=== PATIENT | male | born 1950 | race Caucasian/White ===

== ENCOUNTER 2019-11-18 07:23 | Day surgery (SDC) | payer OTHER ==
[~2019-11-18] VITALS: Ht 177.8 cm; Wt 109.8 kg
[~2019-11-18 07:23] MED LIST: BENICAR HCT 401 EAC1 PO; CLONIDINE HCL0.2 MG PO; DEPO-TESTO200 MG/1 M IM; ICAPS TABLET1 EACH PO; METFORMIN HCL1000 MG PO; METOPROLOL SUC100 MG PO; METOPROLOL TART50 MG PO; OMEPRAZOLE20 MG PO; PERCOCET 7.5-31 EACH PO; SIMVASTATIN20 MG PO; TAMSULOSIN HCL0.4 MG PO; TYLENOL WITH C1 EACH PO; ZOLPIDEM TARTRA10 MG PO
--- NOTE | 2019-11-18 09:28 | NUR ---
11/18/19 0928 Christi Lincoln 0921- PT ARRIVES TO PACU TALKING WITH STAFF. RESP EVEN AND UNLABORED. OXYGEN SAT LOW TO MID 90'S ON 2L VIA NC. PT ENCOURAGED TO COUGH AND DEEP BREATHE. PT IS ABLE TO DO THIS AND OXYGEN SAT INCREASED TO THE HIGH 90'S. 09- PT PASSING FLATUS.
--- NOTE | 2019-11-21 09:09 | OR ---
[facility] [address] [place], [place] [address] Signed DATE OF OPERATION: 11/18/2019 SURGEON: Pilar Whipple MD PREOPERATIVE DIAGNOSIS: Episodic persistent diarrhea (chronic). POSTOPERATIVE DIAGNOSIS: Polyps x2, normal-appearing colonic mucosa, otherwise including terminal ileum. PROCEDURE: 1. Total colonoscopy to cecum with random biopsies including rectum, cecum and terminal ileum. 2. Cold morcellation polypectomy x2 (cecum and hepatic flexure). ANESTHESIA: Intravenous sedation, fentanyl 100 mcg and Versed 9 mg. INDICATION: This 69-year-old white man is a patient of Dr. Xiomara Howard and well known to me from the past. He has had episodic diarrhea which in recent times is better than in the past. He does take metformin, the possibility of this contributes to it is uncertain. He has been empirically treated with Flagyl in the past and has undergone colonoscopy in the past showing no sign of colitis. He is admitted to undergo colonoscopy at this time for surveillance and for assessment of diarrhea. He understands the risks of bleeding, infection, and perforation and wished to proceed. FINDINGS: The prep was excellent. Complete colonoscopy was undertaken to the cecum. Intubation of the ileum was slightly challenging, but was accomplished allowing for biopsies there. It was not grossly abnormal. There were two small polyps, one in the cecum, one at the hepatic flexure, both excised with cold morcellation technique. There was no evidence of obvious colitis or proctitis, although biopsies were taken of the cecum and rectum to assess for occult colitis. DESCRIPTION OF PROCEDURE: The patient was brought to the endoscopy suite and placed in lateral decubitus position, given intravenous sedation to the point of slurred speech and nystagmus. Digital rectal examination was normal. Electronically Signed By: PILAR WHIPPLE MD 11/21/19 0909 PATIENT NAME: Nya LYONS OPERATIVE REPORT DATE OF : 54 REPORT #: [id number] PHYSICIAN: PILAR WHIPPLE MD PCP: XIOMARA HOWARD MD REPORT IS CONFIDENTIAL AND NOT TO BE RELEASED WITHOUT AUTHORIZATION [facility] [address] [place], [place] [address] Signed An Olympus video colonoscope was passed in the rectum and manipulated throughout the colon ultimately intubating the cecum itself. The ileocecal valve was identified and with various maneuvers, it was partially intubated, could never be fully intubated in the typical way, but visualization though transient did appear normal. Biopsies were taken of the terminal ileum distal 2-3 cm. The scope was withdrawn to the cecum. Biopsies were taken of the cecum as well. Withdrawal of scope showed a small adenomatous polyp at the junction between the ascending and cecal area and this polyp was excised with cold morcellation technique. Further withdrawal to the hepatic flexure showed another similar such polyp, it too was excised. Withdrawal of scope for the remaining colon showed no sign of obvious abnormality. Retroflexed view was normal as well. Biopsy was taken of the rectum to assess for occult colitis. The scope was removed. The patient was taken to the recovery room in good condition. CONCLUDING DIAGNOSES: 1. Small polyps x2. 2. Normal-appearing ileum. 3. Normal-appearing colon. PLAN: We will check pathology report. Recommend a repeat colonoscopy in 5 years due to polyps, sooner if needed. He is not currently taking any antidiarrheal medication, but if his diarrhea should worsen, consideration will be made for loperamide or other agent. MD BALTAZAR White/MODL /[id number] cc: Xiomara Howard MD Copies: XIOMARA HOWARD MD ~ Electronically Signed By: PILAR WHIPPLE MD 11/21/19908 PATIENT NAME: Nya LYONS OPERATIVE REPORT DATE OF : 54 REPORT #: [id number] PHYSICIAN: PILAR WHIPPLE MD PCP: XIOMARA HOWARD MD REPORT IS CONFIDENTIAL AND NOT TO BE RELEASED WITHOUT AUTHORIZATION
--- NOTE | 2019-11-22 14:00 | PATH ---
[facility] [address] [place], [place] [address] Signed SPECIMEN(S): A TERMINAL ILEUM SPECIMEN(S): B CECUM SPECIMEN(S): C CECAL POLYP SPECIMEN(S): D HEPATIC FLEXURE POLYP SPECIMEN(S): E RECTUM SPECIMEN SOURCE: A. TERMINAL ILEUM B. CECUM C. CECAL POLYP D. HEPATIC FLEXURE POLYP E. RECTUM CLINICAL HISTORY: Hx diarrhea. MICROSCOPIC DESCRIPTION: Histologic sections of all submitted blocks are examined by light microscopy. These findings, together with the gross examination, support the pathologic diagnosis. FINAL PATHOLOGIC DIAGNOSIS: A. Terminal ileum, biopsy: - Ileal mucosa with no histopathologic abnormality. - Negative for active inflammation or granulomata. - Negative for dysplasia or malignancy. B. Colon, cecum, biopsy: - Colonic mucosa with no histopathologic abnormality. - Negative for active, chronic, or microscopic colitis. - Negative for dysplasia or malignancy. C. Colon, cecum, polyp, polypectomy: - Tubular adenoma. - Negative for high-grade dysplasia or malignancy. D. Colon, hepatic flexure, polyp, polypectomy: - Fragments of tubular adenoma. - Negative for high-grade dysplasia or malignancy. E. Rectum, biopsy: - Rectal mucosa with no histopathologic abnormality. - Negative for active or chronic proctitis. - Negative for dysplasia or malignancy. NAL:[facility]:C2NR PATIENT NAME: Nya LYONS PATHOLOGY DATE OF : 54 REPORT #: [id number] PHYSICIAN: EFRMIN PATHOLOGY PCP: XIOMARA MERIDA MD REPORT IS CONFIDENTIAL AND NOT TO BE RELEASED WITHOUT AUTHORIZATION [facility] [address] [place], [place] [address] Signed GROSS DESCRIPTION: Five specimens are received in five containers, labeled "RL." A. The specimen, labeled "RL, terminal ileum biopsy," is received in formalin and consists of three martínez soft tissue fragment(s) that measure 0.2 cm in greatest dimension. The specimen is entirely submitted in cassette (A1). B. The specimen, labeled "RL, cecum biopsy," is received in formalin and consists of two martínez soft tissue fragment(s) that measure 0.1 cm in greatest dimension. The specimen is entirely submitted in cassette (B1). C. The specimen, labeled "RL, cecum polyp," is received in formalin and consists of three martínez soft tissue fragment(s) that measure 0.2 cm in greatest dimension. The specimen is entirely submitted in cassette (C1). D. The specimen, labeled "RL, hepatic flexure polyp," is received in formalin and consists of three martínez soft tissue fragment(s) that measure 0.1 cm in greatest dimension. The specimen is entirely submitted in cassette (D1). E. The specimen, labeled "RL, rectum biopsy," is received in formalin and consists of one martínez soft tissue fragment(s) that measure 0.2 cm in greatest dimension. The specimen is entirely submitted in cassette (E1). JS (under the direct supervision of a pathologist) The Gross Description was prepared using a voice recognition system. The report was reviewed for accuracy; however, sound-alike word errors, addition and/or deletions may occur. If there is any question about this report, please contact Client Services. PERFORMING LABORATORY: The technical component was performed by [employer] [address] [place] [address] (Account Manager Education: Kathryn Nails MD; CLIA# [id number]). Professional interpretation was performed by [facility], [address] [address], [place] [address] (CLIA# [id number]). Diagnostician: Beatrice Chowdary MD Pathologist Electronically Signed 11/22/2019 Copies: PATIENT NAME: Nya LYONS PATHOLOGY DATE OF : 54 REPORT #: [id number] PHYSICIAN: FERMIN PATHOLOGY PCP: XIOMARA MERIDA MD REPORT IS CONFIDENTIAL AND NOT TO BE RELEASED WITHOUT AUTHORIZATION [facility] [address] [place] [address] Signed ~ PATIENT NAME: Nya LYONS PATHOLOGY DATE OF : 54 REPORT #: [id number] PHYSICIAN: INCYTE PATHOLOGY PCP: XIOMARA MERIDA MD REPORT IS CONFIDENTIAL AND NOT TO BE RELEASED WITHOUT AUTHORIZATION
== END 2019-11-18 10:00 | disposition home or self-care (01) ==
LOC: DS 07:23
PROVIDERS: ATTEND Surgery
PROC: 0DBL8ZZ Excision of Transverse Colon, Via Natural or Artificial Opening Endoscopic (ICD-10-PCS; 2019-11-18)
PROC: 0DBP8ZX Excision of Rectum, Via Natural or Artificial Opening Endoscopic, Diagnostic (ICD-10-PCS; 2019-11-18)
PROC: 0DBB8ZX Excision of Ileum, Via Natural or Artificial Opening Endoscopic, Diagnostic (ICD-10-PCS; 2019-11-18)
PROC: 0DBH8ZZ Excision of Cecum, Via Natural or Artificial Opening Endoscopic (ICD-10-PCS; principal; 2019-11-18 08:30)
DX: D12.0 Benign neoplasm of cecum (principal); D12.3 Benign neoplasm of transverse colon; I10 Essential (primary) hypertension; E11.9 Type 2 diabetes mellitus without complications; E78.5 Hyperlipidemia, unspecified; K21.9 Gastro-esophageal reflux disease without esophagitis; F51.04 Psychophysiologic insomnia; Z79.84 Long term (current) use of oral hypoglycemic drugs; Z79.899 Other long term (current) drug therapy; Z88.1 Allergy status to other antibiotic agents; Z88.2 Allergy status to sulfonamides; Z90.49 Acquired absence of other specified parts of digestive tract; Z87.891 Personal history of nicotine dependence
CPT/HCPCS: 99153; G0500; J0690; J2250; J3010; J7121

== ENCOUNTER 2021-05-06 05:40 | Day surgery (SDC) | payer OTHER ==
[~2021-05-06] VITALS: Ht 177.8 cm; Wt 97.3 kg
[~2021-05-06 05:40] MED LIST changes: +GLUCOTROL XL10 MG PO; +IMODIUM A-D2 M2 PO; +LIPITOR40 MG PO; +LOSARTAN-HCTZ1 EAC1 PO; +OMEPRAZOLE20 M1 PO; +OZEMPIC0.25 MG/0. SUB-Q; +VITAMIN D325 MCG PO
--- NOTE | 2021-05-06 08:30 | NUR ---
PT ALERT, ORIENTED AND SUPPORTED BY HIS SPOUSE POLO. BOTH SEEM INFORMED, ALL QUESTIONS ASKED ANSWERED. GAVE BLESSING, POLO WILL REMAIN THROUGH SURGERY
--- NOTE | 2021-05-06 09:56 | NUR ---
05/06/21 0956 Gi Hernandez 0965 PT ARRIVED IN PACU SLEEPY WITH NO C/O'S. RAMACHANDRAN WITH CBI RUNNING. URINE LIGHT PINK IN COLOR. 0950 OXYGEN REMOVED. SATS 92-95% ON RA. C/O FEELING STUFFY IN NOSE/FOREHEAD AREA.
--- NOTE | 2021-05-06 10:36 | NUR ---
PT TO FLOOR WITH PRICILLA LLOYD. PT AWAKE AND RESPONSIVE TO QUESTIONS. FALLS ASLEEP QUICKLY THOUGH. IN ROOM. URINE PUTTING OUT WATERMELON COLORED URINE, IRRIGATION AT A GOOD DRIP. DENIES PAIN BUT FEELS LIKE HE HAS TO PEE.
--- NOTE | 2021-05-06 12:13 | NUR ---
PT RESTING WITH EYES CLOSED. DENIES PAIN, JUST PRESSURE OF NEEDING TO PEE. SWITCHED PT TO IVF ON PUMP. EMPTIED RAMACHANDRAN, LARGE QTY WATERMELON URINE.
[2021-05-06] MEDS ORDERED: GLIPIZIDE10 MG PO (12:27)
[2021-05-06] MEDS ORDERED: METOPROLOL SUC200 MG PO (12:29)
--- NOTE | 2021-05-06 12:38 | OR ---
[facility] [address] [place], [place] [address] Signed DATE OF OPERATION: 05/06/2021 SURGEON: Melissa Cochran MD PREOPERATIVE DIAGNOSES: 1. Urinary urgency, frequency and weak force of stream. 2. Trilobar benign prostatic hyperplasia with associated lower urinary tract symptoms. 3. Evidence of long-standing bladder outlet obstruction (grade 4 bladder wall trabeculation). POSTOPERATIVE DIAGNOSES: 1. Urinary urgency, frequency and weak force of stream. 2. Trilobar benign prostatic hyperplasia with associated lower urinary tract symptoms. 3. Evidence of long-standing bladder outlet obstruction (grade 4 bladder wall trabeculation). NAMES OF PROCEDURES: 1. Diagnostic cystoscopy. 2. Urethral dilation using Gooding sounds from 14-Congolese to 30-Congolese. 3. Transurethral resection of the prostate. ANESTHESIA: General. ESTIMATED BLOOD LOSS: 20 mL. COMPLICATIONS: None. SPECIMENS: Prostate chips sent to pathology for evaluation. DRAINS: A 22-Congolese three-way Ocampo catheter, connected to continuous bladder irrigation. INDICATIONS FOR PROCEDURE: Olga is a very pleasant 70-year-old gentleman who presented to me with wyeajuis-ea-efsmid lower urinary tract symptoms on Flomax twice daily. He had has failed oral medications, and at that time, the decision was made for him to undergo Electronically Signed By: MELISSA COCHRAN MD 05/06/21 1238 PATIENT NAME: OLGA LYONS OPERATIVE REPORT DATE OF : 54 REPORT #: [id number] PHYSICIAN: MELISSA COCHRAN MD PCP: VERONICA MARTINEZ MD REPORT IS CONFIDENTIAL AND NOT TO BE RELEASED WITHOUT AUTHORIZATION [facility] [address] [place], [place] [address] Signed diagnostic cystoscopy to be evaluated for transurethral resection of the prostate. He did undergo a diagnostic cystoscopy which revealed evidence of long-standing bladder outlet obstruction, along with kwgctutj-mx-hmhzgf trilobar benign prostatic hyperplasia with a medium-sized median lobe projecting into the bladder. After discussion of the risks and benefits of the procedure which include, but are not limited to hemorrhage, sexual dysfunction, and urinary incontinence, the patient elected to undergo transurethral resection of the prostate for definitive management of his bladder outlet obstruction. OPERATIVE FINDINGS: 1. On cystoscopy, there was no evidence of any bladder lesions or stones. Bilateral ureteral orifices are noted in their normal anatomic location and are not near the bladder neck. He has a good deal of calculi dust present in his bladder that is indicative of chronic incomplete bladder emptying. Also, noted is grade 4 bladder wall trabeculation with 2 to 3 large bladder wall diverticula measuring a maximum size of 7 cm. 2. The patient's trilobar prostate was resected using a 24-Congolese bipolar loop. The median lobe was resected first followed by the left and then right lateral lobe of the prostate. Resection was performed down to the level of just proximal to the verumontanum to avoid any damage to the external sphincter. At the end of the resection, there was no evidence of any iatrogenic injury to the bilateral ureteral orifices, which again were in their normal anatomic location. 3. At the end of the procedure, a 22-Congolese three-way Ocampo catheter was inserted into the patient's bladder and the balloon was filled with 30 mL of water. The catheter was then connected to continuous bladder irrigation. DESCRIPTION OF PROCEDURE: After informed consent was obtained, the patient was taken back to the operating room where he was transferred from the [facility] to the operating room table. General anesthesia was then induced and he was placed in the dorsal lithotomy position. His genitalia were then prepped and draped in a standard sterile fashion. A digital rectal examination was performed, which revealed a 50 g prostate with no focal nodules. His urethral meatus was then dilated using Gooding sounds from 14-Congolese to 30-Congolese without difficulty. 60 mL of lubricant was then injected through the penis and into the prostatic urethra using a 60 mL syringe. Using a 30-degree lens on a 26-Congolese introducer, a rigid cystoscope was inserted through his urethra and into his bladder under direct visualization. Panendoscopic views of the bladder and prostatic urethra were then obtained. Please see above findings. The scope was then switched out for the resectoscope with a 24-Congolese loop. The median lobe was then resected using bipolar electrocautery. Again, I had good visualization of the bilateral ureteral orifices during the entire resection and there was no iatrogenic injury noted at the end of the resection. Also using the bipolar loop, I resected the left and then right lateral lobe Electronically Signed By: MELISSA COCHRAN MD 05/06/21 1238 PATIENT NAME: OLGA LYONS OPERATIVE REPORT DATE OF : 54 REPORT #: [id number] PHYSICIAN: MELISSA COCHRAN MD PCP: VERONICA MARTINEZ MD REPORT IS CONFIDENTIAL AND NOT TO BE RELEASED WITHOUT AUTHORIZATION [address] [address] Signed of the prostate down to the level of just proximal to the verumontanum. Adequate hemostasis was achieved and maintained using the bipolar loop. Once a good deal of the prostatic tissue had been resected, the patient's bladder was irrigated thoroughly with the Marti syringe to retrieve all the prostate chips. This was performed a couple of times until all the prostate tissue was extracted to my satisfaction. Then I switched the loop out for a bipolar button and smoothed the surfaces of the prostatic urethra out and then continued with cauterization of any additional small bleeders in the prostatic urethra. Once I was satisfied that hemostasis had been achieved the patient's bladder was then irrigated again with a Marti syringe. The chips were then placed in a specimen cup to be sent to pathology for evaluation. I then removed the resectoscope and passed a Sensor wire through the sheath and into the patient's bladder. The sheath was then removed fully intact. Over the wire, passed a 22-Congolese three-way Ocampo catheter into the patient's bladder and filled the Ocampo balloon with 30 mL of sterile water. The patient's catheter was then mainly irrigated multiple times to assure adequate placement. The catheter was then connected to continuous bladder irrigation. Again, a digital rectal exam was performed, which revealed no abnormalities, only prostate enlargement. The procedure was then terminated. The patient tolerated the procedure well without any complication. He will now be transferred to the postanesthesia care unit in stable condition. DISPOSITION: I discussed the details of today's procedure with the patient's and answered all of her questions. He will stay the night with us tonight on continuous bladder irrigation, which will be weaned off slowly, keeping his urine clear to light pink in color. He will be given pain control and antiemetics as needed and his diabetic diet will be advanced as tolerated. Tomorrow morning once his CBI has been weaned off he will be discharged to home with his Ocampo catheter to gravity drainage. He will be scheduled to return to clinic this April 29, to undergo a voiding trial. Melissa Cochran MD AR/MODL /[id number] Copies: Electronically Signed By: MELISSA COCHRAN MD 05/06/21 1238 PATIENT NAME: OLGA LYONS OPERATIVE REPORT DATE OF : 54 REPORT #: [id number] PHYSICIAN: MELISSA COCHRAN MD PCP: VERONICA MARTINEZ MD REPORT IS CONFIDENTIAL AND NOT TO BE RELEASED WITHOUT AUTHORIZATION [address] [address] Signed ~ Electronically Signed By: MELISSA COCHRAN MD 05/06/21 1238 PATIENT NAME: OLGA LYONS OPERATIVE REPORT DATE OF : 54 REPORT #: [id number] PHYSICIAN: MELISSA COCHRAN MD PCP: VERONICA MARTINEZ MD REPORT IS CONFIDENTIAL AND NOT TO BE RELEASED WITHOUT AUTHORIZATION
--- NOTE | 2021-05-06 13:52 | NUR ---
PT RESTING IN BED. URINE EMPTIED, LIGHT RED. DENIES NEEDING PAIN MEDS ATT. STILL NOT HUNGRY. HELD INSULIN FOR NOW.
--- NOTE | 2021-05-06 14:06 | NUR ---
MED REC COMPLETE
--- NOTE | 2021-05-06 14:16 | NUR ---
CHECKED ON PT-LAYING IN BED WITH TV ON. SAID SHE WAS OK, BUT NEEDED SOME LIGHTS TURNED DOWN. LIGHTS DIMMED, GAVE BLESSING AND LEFT G.POST. WILL FOLLOW NEEDED
--- NOTE | 2021-05-06 17:45 | NUR ---
PT SITTING IN BED EATING DINNER. PT DENIES NEEDING PAIN MEDS. GIVEN INSULIN FOR BS. IN ROOM.
--- NOTE | 2021-05-06 19:20 | NUR ---
BEDSIDE REPORT RECEIVED FROM OFFGOING RNCIARA. PT DENIES NEEDS. CALL LIGHT IN REACH.
--- NOTE | 2021-05-06 23:11 | NUR ---
PT ASSESSMENT COMPLETE. PT NOTED TO HAVE BLOOD ON FRONT OF GOWN, ON SOCKS, ON LEGS, AND BLOOD DROPS IN FLOOR NEXT TO BED. PT STATES THAT HE STOOD UP AT EDGE OF BED AND REALIZED HE WAS HOOKED TO TOO MANY THINGS TO GO ANYWHERE. STATES THAT HE WAS HOT AND NEEDED TO STAND UP TO COOL OFF. EDUCATION PROVIDED REGARDING STRICT BEDREST. PT STATES UNDERSTANDING. BED ALARM PLACED AND PT CLEANSED. NEW GOWN PLACED. PT ALERT AND ORIENTED. CATH CARE PERFORMED. CBI INFUSING. URINE IS LIGHT PINK IN TUBING, NO CLOTS PRESENT IN TUBING. IV FLUSHED, WNL. IFV INFUSING ORDERED. PT REPORTS INCREASED BACK/NECK/PENIS PAIN. PRN ADMINISTERED SEE EMAR. PT DENIES SOB OR NAUSEA AT THIS TIME. PT CALL LIGHT IN REACH. FURTHER NEEDS DENIED.
--- NOTE | 2021-05-07 00:30 | NUR ---
PT RESTING IN BED WATCHING TV. STATES THAT PAIN IS WELL CONTROLLED AFTER PRN. STATES HE WILL HEAD TO BED SHORTLY. URINE IN RAMACHANDRAN TUBE NOTED TO BE CLEAR IN COLOR. CLAMPED AT THIS TIME. PT DENIES FURTHER NEEDS. CALL LIGHT IN REACH. BD ALARM ACTIVE.
--- NOTE | 2021-05-07 01:19 | NUR ---
PT ROUNDING. PT RESTING IN BED ON R SIDE. URINE IN TUBING VERY LIGHT PINK IN COLOR, CBI REMAINS CLAMPED. PT DENIES FURTHER NEEDS. CALL LIGHT IN REACH.
--- NOTE | 2021-05-07 02:08 | NUR ---
PT ASSESSMENT COMPLETE. PT RESTINGIN BED AWAKE. STATES THAT HE IS LIGHT SLEEPER AND HAS TROUBLE SLEEPING IN NEW PLACES. PT DENIES PAIN, NAUSEA, OR SOB. RAMACHANDRAN DRAINING DARK PINK URINE. CBI INCREASED TO SLOW DRIP AT THIS TIME. IVF INFUSING ORDERED. PT DENIES FURTHER NEEDS AT THIS TIME. CALL LIGHT IN REACH.
--- NOTE | 2021-05-07 04:10 | NUR ---
PT ROUNDING. PT RESTING IN BED WATCHING TV. URINE IN RAMACHANDRAN TUBING CLEAR, CBI CLAMPED. PT DENIES NEEDS. CALL LIGHTIN REACH.
--- NOTE | 2021-05-07 06:24 | NUR ---
PT ROUNDING. VS OBTAINED. WNL. RAMACHANDRAN EMPTIED. CLEAR YELLOW URINE PRESENT IN RAMACHANDRAN TUBING. CBI CLMAPED. PT DENIES FRESH ICE WATER, FURTHER NEEDS AT THIS TIME. CALL LIGHT IN REACH. BED ALARM ACTIVE.
--- NOTE | 2021-05-07 07:30 | NUR ---
Report receved at beside by Alcira PLEITEZ. pt is alert oriented and watching tv. per report CBI clamped since 399 caal draining urine slightly pink no clotting noted. Patient deines concerns or pain
--- NOTE | 2021-05-07 08:00 | NUR ---
Am medications provided see emar. patient deines pain or bladder spasms. denies nausea. discussed poc and strict bed rest. patient eating breakfast.
[2021-05-07] MEDS ORDERED: OXYCODONE HCL5 MG PO (08:31)
[2021-05-07] MEDS ORDERED: LEVOFLOXACIN250 MG PO (08:32)
--- NOTE | 2021-05-07 10:55 | NUR ---
1000- notified Dr Becerril of patients status. Ok to discharge per Dr Becerril. Educated patient on diet, activity restrictions, catheter care, follow up appt, and resons to contact health care providers. Patient's was at the bedside. Asked questions appropriately. IV removed. Denies questiosn at time of disharge
--- NOTE | 2021-05-07 12:14 | NUR ---
PT DRESSED, STANDING IN FRONT OF WINDOW VISITING WITH HIS . PT IS READY TO DC, GAVE BLESSING AND SEEMS READY. WILL FOLLOW NEEDED
--- NOTE | 2021-05-08 10:40 | PATH ---
[facility] [address] [place], [place] [address] Signed SPECIMEN(S): A PROSTATE CHIPS SPECIMEN SOURCE: A. PROSTATE CHIPS CLINICAL HISTORY: Trilobar BPH; TURP. FINAL PATHOLOGIC DIAGNOSIS: Prostate chips, transurethral resection: - Fragments of benign prostatic tissue with glandular and stromal hyperplasia, consistent with features seen in benign prostatic hyperplasia. TWK:[facility]:C2NR MICROSCOPIC EXAMINATION: Histologic sections of all submitted blocks are examined by light microscopy. These findings, together with the gross examination, support the pathologic diagnosis. GROSS DESCRIPTION: The specimen, labeled "RL, prostate chips," is received in formalin and consists of irregular shaped, pink-martínez, rubbery tissue fragments that aggregate measure 6.5 x 5.5 x 1.2 cm. Specimen weighs 15 grams. Approximately 90% of the specimen is submitted in nine cassettes (A1-A9). JS (under the direct supervision of a pathologist) The Gross Description was prepared using a voice recognition system. The report was reviewed for accuracy; however, sound-alike word errors, addition and/or deletions may occur. If there is any question about this report, please contact Client Services. PERFORMING LABORATORY: The technical component was performed by [employer], [address] [place] [id number] (Gas Engine Mechanic: Kathryn Nails MD; CLIA# [id number]). The professional interpretation was performed by [employer], [facility], [address] [place] [address]. Diagnostician: Ravinder Gifford MD Pathologist Electronically Signed 05/08/2021 PATIENT NAME: OLGA LYONS PATHOLOGY DATE OF : 54 REPORT #: [id number] PHYSICIAN: FERMIN PATHOLOGY PCP: VERONICA MARTINEZ MD REPORT IS CONFIDENTIAL AND NOT TO BE RELEASED WITHOUT AUTHORIZATION [address] [address] Signed Copies: ~ PATIENT NAME: OLGA LYONS PATHOLOGY DATE OF : 54 REPORT #: [id number] PHYSICIAN: FERMIN PATHOLOGY PCP: VERONICA MARTINEZ MD REPORT IS CONFIDENTIAL AND NOT TO BE RELEASED WITHOUT AUTHORIZATION
== END 2021-05-07 11:20 | disposition home or self-care (01) ==
LOC: DS 05:40 → MS 10:10 → DS 05-07 11:20
PROVIDERS: ATTEND Urology
PROC: 0VT08ZZ Resection of Prostate, Via Natural or Artificial Opening Endoscopic (ICD-10-PCS; principal; 2021-05-06 06:45)
DX: N40.1 Benign prostatic hyperplasia with lower urinary tract symptoms (principal); N13.8 Other obstructive and reflux uropathy; R39.15 Urgency of urination; R39.12 Poor urinary stream; R35.0 Frequency of micturition; N32.89 Other specified disorders of bladder; R39.14 Feeling of incomplete bladder emptying; E11.9 Type 2 diabetes mellitus without complications; Z88.2 Allergy status to sulfonamides
CPT/HCPCS: C1769; J0690; J0696; J1100; J1815; J1885; J2250; J2405; J2704; J2765; J3010; J7030; J7121

== ENCOUNTER 2023-08-28 15:55 | Emergency (ER) | payer OTHER ==
[~2023-08-28] VITALS: Ht 177.8 cm; Wt 115.3 kg
[~2023-08-28 15:55] MED LIST changes: +GLIPIZIDE10 MG PO; +LEVOFLOXACIN250 MG PO; +METOPROLOL SUC200 MG PO; +OXYCODONE HCL5 MG PO
[2023-08-28 16:10] LABS: HEMATOCRIT 44.9 % (35.0-50.0); HEMOGLOBIN 13.7 g/dL (12.0-18.0); MCH 29.1 (27-36); MCHC 30.5 g/dl (30-36); MCV 95.3 fl (81-99); PLATELET COUNT 300 K/uL (140-440); RBC 4.71 M/ul (4.3-5.7); RDW 15.8 (10.5-15.0)
[2023-08-28] MEDS ORDERED: SODIUM CHLORIDE 0.9% 1,000 ML IV ONE (16:15)
[2023-08-28] MEDS ORDERED: NOREPINEPHRINE BITARTRATE 250 ML IV SCH (16:15)
[2023-08-28 16:27] LABS: HCO3, BLOOD GAS 5.9 mmol/L (22-26); O2 SATURATION, BLOOD GAS 80.6 % (95.0-100.0); PO2, BLOOD GAS 75 mmHg (80-100); TOTAL CO2, BLOOD GAS 7.5
[2023-08-28 16:31] LABS: BANDS, MANUAL DIFF 4; BASOPHILS, MANUAL DIFF 1; EOSINOPHILS, MANUAL DIFF 3; LYMPHOCYTES, MANUAL DIFF 24; MONOCYTES, MANUAL DIFF 2; NEUTROPHILS, MANUAL DIFF 66
[2023-08-28 16:57] LABS: BASE EXCESS, BLOOD GAS -31.3 mmol/L (-2-2)
[2023-08-28 17:16] LABS: ALBUMIN 2.3 g/dL (3.4-5.0); ALBUMIN/GLOBULIN RATIO 0.72 (1.1-2.4); BILIRUBIN, TOTAL 0.3 ng/dL (0.2-1.0); CALCIUM 6.8 mg/dL (8.5-10.1); PROTEIN, TOTAL 5.5 g/dL (6.4-8.2)
[2023-08-28 17:17] LABS: ANION GAP 32.2 (7-21)
[2023-08-28 17:18] LABS: POTASSIUM 8.2 mmol/L (3.5-5.1)
--- NOTE | 2023-08-28 18:06 | NUR ---
Called to comfort family of patient in crisis. Had prayer, gave words of comfort and water. Patient passed at 17:13. Gave care and comfort to family as they waited for out of town son to arrive. At family's request and release of body, Chapel was contacted at 18:25 Since personal effects were only clothing, said clothing could be discarded. Had prayer with entire family before home arrival. home arrived at 18:55 Body departed hospital at 19:04
[2023-08-28 19:09] VITALS: BP 54/35
--- NOTE | 2023-08-29 13:47 | EKG ---
[facility] [address] [facility] [place] [address] Signed Accelerated Junctional rhythm with frequent premature ventricular complexes Left axis deviation Low voltage QRS Inferior infarct , age undetermined Possible Anterolateral infarct (cited on or before 29-APR-2021) Prolonged QT Abnormal ECG When compared with ECG of 28-AUG-2023 16:04, (Unconfirmed) Previous ECG has undetermined rhythm, needs review Confirmed by Tyron Redman MD ([id number]) on 08/29/2023 1:47:35 PM Electronically Signed By: TYRON REDMAN 08/29/23 1347 PATIENT NAME: PURA LYONS Electrocardiogram DATE OF : [birth year] PHYSICIAN: TYRON REDMAN REPORT #: [id number] REPORT IS CONFIDENTIAL AND NOT TO BE RELEASED WITHOUT AUTHORIZATION
== END 2023-08-28 19:09 ==
LOC: ED 15:55
PROVIDERS: Emergency Medicine
DX: I46.9 Cardiac arrest, cause unspecified (principal); E11.9 Type 2 diabetes mellitus without complications; I10 Essential (primary) hypertension; F17.200 Nicotine dependence, unspecified, uncomplicated; Z88.2 Allergy status to sulfonamides; Z79.84 Long term (current) use of oral hypoglycemic drugs; Z79.899 Other long term (current) drug therapy
CPT/HCPCS: 36415; 36600; 71045; 80053; 82803; 83880; 84484; 85025; 93005; 93010; J7030